=== PATIENT | female | born 1955 | race Caucasian/White ===

== ENCOUNTER → 2017-01-30 | Outpatient (CLI) | payer OTHER ==
[~2017-01-30] MED LIST: LISI10TA3 PO; PRIS100T PO; TRIA37.5 PO
[2017-01-30 17:33] LABS: AUTOMATED NEUTROPHIL # 4.7 TH/MM3 (1.8-7.7); BASOPHIL # 0.1 TH/MM3 (0-0.2); BASOPHIL % 1.1 % (0.0-2.0); EOSINOPHIL # 0.2 TH/MM3 (0-0.4); EOSINOPHIL % 2.6 % (0.0-4.0); HEMATOCRIT 43.3 % (35.0-46.0); HEMO FLAGS DIFF FINAL; LYMPH % 42.4 % (9.0-44.0); LYMPHOCYTE # 4.1 TH/MM3 (1.0-4.8); MEAN CELL VOLUME 94.7 FL (80.0-100.0); MEAN CORPUSCULAR HEMOGLOBIN 31.9 PG (27.0-34.0); MEAN CORPUSCULAR HGB CONC 33.7 % (32.0-36.0); MONO % 5.3 % (0.0-8.0); NEUT % 48.6 % (16.0-70.0); PLATELET COUNT 306 TH/MM3 (150-450); RED BLOOD COUNT 4.57 MIL/MM3 (4.00-5.30); RED CELL DISTRIBUTION WIDTH 13.2 % (11.6-17.2); WHITE BLOOD COUNT 9.6 TH/MM3 (4.0-11.0)
[2017-01-30 18:04] LABS: FREE T4 0.87 NG/DL (0.76-1.46)
== END ==
LOC: PLAB 15:39
PROVIDERS: ATTEND Family Medicine
DX: R53.83 Other fatigue (principal)
CPT/HCPCS: 82306; 82607; 82746; 84439; 84443; 84480; 85025

== ENCOUNTER 2018-03-15 19:47 | Observation (INO) ==
--- NOTE | 2018-03-15 21:31 | ED ---
HPI General Chief Complaint: Chest Pain Stated Complaint: Chest Pain Time Seen by Provider: 03/15/18 21:05 Source: patient Mode of arrival: ambulatory Limitations: no limitations History of Present Illness HPI narrative: The patient is a 62-year-old female who presents to the emergency department for chest pain. The patient states that she developed chest pain on Monday, the chest pain is substernal, radiates to the back, and is associated with diaphoresis. The patient also complains of mild pain with inspiration, feels like she cannot catch her breath. The patient denies any nausea, vomiting, or new cough. The patient does have a history of hypertension and hyperlipidemia, denies any known history of coronary artery disease, tobacco use, diabetes, pulmonary embolism, or DVT. The patient has never had a cardiac catheterization or stress test performed. The patient does have pain at rest, is constant, is not alleviated with lying supine. It is worse with certain movements, however, still present during relaxation and with ambulation. She denies any significant exertional factors. The patient's primary physician is Dr. Tyrel Mcneal. complaint: Reports chest pain STEMI Alert: No Onset (ago): day(s) Duration: constant Onset: other Pain location: Reports substernal Severity: moderate Severity scale (1-10): 6 Quality: Reports aching Pain radiation: Reports other Relieving factors: nothing Exacerbating factors: movement Associated symptoms: Reports diaphoresis Treatments prior to arrival chest pain: Reports other Related Data On Oral Contraceptives: No Home Medications Medication Instructions Recorded Confirmed desvenlafaxine succinate [Pristiq] 100 mg PO DAILY 01/20/18 03/15/18 lisinopril 20 mg PO DAILY 01/20/18 03/15/18 triamterene-hydrochlorothiazid 1 cap PO DAILY 01/20/18 03/15/18 [Dyazide] Allergies Allergy/AdvReac Type Severity Reaction Status Date / Time acetaminophen Allergy Severe Itching Verified 03/15/18 19:56 hydrocodone Allergy Severe Itching Verified 03/15/18 19:56 hydromorphone Allergy Severe ITCHING Verified 03/15/18 19:56 iodine Allergy Severe HIVES Verified 03/15/18 19:56 morphine Allergy Severe ITCH Verified 03/15/18 19:56 potassium iodide Allergy Severe HIVES Verified 03/15/18 19:56 povidone-iodine Allergy Severe HIVES Verified 03/15/18 19:56 sodium iodide Allergy Severe HIVES Verified 03/15/18 19:56 sodium iodide Allergy Severe HIVES Verified 03/15/18 19:56 shrimp Allergy Hives Verified 03/15/18 19:56 Review of Systems ROS: all other systems reviewed are negative [facility] Social History Social History Substance History: No History of Abuse Second Hand Smoke Exposure: No Smoking Status: Never smoker How Often Do You Have a Drink Containing Alcohol: Never Recent Travel in [facility] within the Last 8 Weeks: No Recent Out of Country Travel within the Last 8 Weeks: No Exam Narrative Exam Narrative: GENERAL: Awake, alert, pleasant 62-year-old female who appears her stated age and is in no acute respiratory distress. SKIN: Focused skin assessment warm/dry. No stigmata of shingles HEAD: Atraumatic. Normocephalic. EYES: Pupils equal and round. No scleral icterus. No injection or drainage. ENT: No nasal bleeding or discharge. Mucous membranes pink and moist. NECK: Trachea midline. No JVD. CARDIOVASCULAR: Regular rate and rhythm. No murmur appreciated. Palpation the chest wall produces pain, however, does not reproduce the pain. RESPIRATORY: No accessory muscle use. Clear to auscultation. Breath sounds equal bilaterally. GASTROINTESTINAL: Abdomen soft, non-tender, nondistended. No epigastric tenderness. Negative Boogie's and McBurney's. Back: No CVA tenderness. Mild tenderness of the mid right scapula. MUSCULOSKELETAL: No obvious deformities. No clubbing. No cyanosis. No edema. NEUROLOGICAL: Awake and alert. No obvious cranial nerve deficits. Motor grossly within normal limits. Normal speech. PSYCHIATRIC: Appropriate mood and affect; insight and judgment normal. Course Initial Documented Vital Signs Temperature 97.9 F 03/15/18 19:51 Pulse Rate 57 L 03/15/18 19:51 Respiratory Rate 18 03/15/18 19:51 Blood Pressure 193/88 H 03/15/18 19:51 Pulse Oximetry 98 03/15/18 19:51 Last Documented Vital Signs Temperature 97.9 F 03/15/18 19:51 Pulse Rate 62 03/15/18 21:49 Respiratory Rate 16 03/15/18 21:49 Blood Pressure 178/90 H 03/15/18 21:49 Pulse Oximetry 98 03/15/18 21:49 Medical Decision Making MDM Narrative Medical decision making narrative: IV was established, labs are drawn and sent, and the patient was placed on cardiac telemetry monitoring and continuous pulse oximetry monitoring. EKG was ordered and interpreted. Chest x-ray was obtained. The patient was administered aspirin and Nitropaste. CPK and troponin were sent to lab. There is no tachycardia or hypoxia, I doubt pulmonary embolism. The patient's chest x-ray reveals questionable pneumonitis versus pulmonary. However, BNP is unremarkable. I doubt significant pneumonitis, patient has had no cough or fever. No recent upper respiratory infections. Troponin and CPK were normal. Potassium is low at 3.3, however, was not replaced immediately secondary to multiple allergies to potassium iodide. Patient does have risk factors with age, hyperlipidemia, and hypertension with no previous CAD workup. After discussion with the patient was agreed she would be a 23-hour observation to the chest pain center for serial cardiac enzymes and possible stress test in the morning. The patient is comfortable with this plan of care and disposition. [facility] I discussed the patient with Dr. Kee who agrees with 23-hour observation to the chest pain center. The patient was administered Vasotec 2.5 mg intravenously for elevated blood pressure, would not tolerate labetalol with heart rate of 60. Medical Screen Exam Complete: Yes Emergency Medical Condition: Yes Differential Diagnosis Differential Diagnosis: Differential diagnosis includes ACS, STEMI, pericarditis , myocarditis, aortic dissection, PE, pneumonia, GERD, esophageal spasm, pancreatitis, biliary colic. Lab Data Result diagrams: 03/15/18 21:40 03/15/18 21:40 Lab Results 03/15/18 03/15/18 03/15/18 Range/Units 21:40 21:40 21:40 CBC w Diff Auto diff final WBC 9.4 (4.0-11.0) th/mm3 RBC 4.67 (4.00-5.30) mil/mm3 Hgb 15.0 (11.6-15.3) gm/dL Hct 44.3 (35.0-46.0) % MCV 94.7 (80.0-100.0) fL MCH 32.1 (27.0-34.0) pg MCHC 33.8 (32.0-36.0) % RDW 11.8 (11.6-17.2) % Plt Count 334 (150-450) th/mm3 MPV 8.3 (7.0-11.0) fL Neut % (Auto) 48.7 (16.0-70.0) % Lymph % (Auto) 39.8 (9.0-44.0) % [place] % (Auto) 5.8 (0.0-8.0) % Eos % (Auto) 5.1 H (0.0-4.0) % Baso % (Auto) 0.6 (0.0-2.0) % Neut # (Auto) 4.6 (1.8-7.7) th/mm3 Lymph # (Auto) 3.7 (1.0-4.8) th/mm3 [place] # (Auto) 0.5 (0.0-0.9) th/mm3 Eos # (Auto) 0.5 H (0.0-0.4) th/mm3 Baso # (Auto) 0.1 (0.0-0.2) th/mm3 WBC Differential . Differential Comment . PT (9.8-11.6) sec INR Ratio APTT (23.4-31.7) sec Sodium 138 (136-145) meq/L Potassium 3.3 L (3.5-5.1) meq/L Chloride 101 (98-107) meq/L Carbon Dioxide 33.3 H (21.0-32.0) meq/L Anion Gap 4 L (5-15) meq/L BUN 11 (7-18) mg/dL Creatinine 0.85 (0.50-1.00) mg/dL Estimated GFR 68 L (>89) mL/min Random Glucose 89 (74-106) mg/dL Calcium 8.7 (8.5-10.1) mg/dL Magnesium 2.0 (1.5-2.5) mg/dL Total Bilirubin 0.3 (0.2-1.0) mg/dL AST 19 (15-37) U/L ALT 26 (10-53) U/L Alkaline Phosphatase 65 (45-117) U/L Total Creatine Kinase 89 (26-192) U/L Troponin I Less than 0.02 L (0.02-0.05) ng/mL B-Natriuretic Peptide 17 (0-100) pg/mL Total Protein 7.4 (6.4-8.2) g/dL Albumin 3.9 (3.4-5.0) g/dL Lipase 129 (73-393) U/L 03/15/18 Range/Units 22:00 CBC w Diff WBC (4.0-11.0) th/mm3 RBC (4.00-5.30) mil/mm3 Hgb (11.6-15.3) gm/dL Hct (35.0-46.0) % MCV (80.0-100.0) fL MCH (27.0-34.0) pg MCHC (32.0-36.0) % RDW (11.6-17.2) % Plt Count (150-450) th/mm3 MPV (7.0-11.0) fL Neut % (Auto) (16.0-70.0) % Lymph % (Auto) (9.0-44.0) % [place] % (Auto) (0.0-8.0) % Eos % (Auto) (0.0-4.0) % Baso % (Auto) (0.0-2.0) % Neut # (Auto) (1.8-7.7) th/mm3 Lymph # (Auto) (1.0-4.8) th/mm3 [place] # (Auto) (0.0-0.9) th/mm3 Eos # (Auto) (0.0-0.4) th/mm3 Baso # (Auto) (0.0-0.2) th/mm3 WBC Differential Differential Comment PT 10.0 (9.8-11.6) sec INR 1.0 Ratio APTT 26.8 (23.4-31.7) sec Sodium (136-145) meq/L Potassium (3.5-5.1) meq/L Chloride (98-107) meq/L Carbon Dioxide (21.0-32.0) meq/L Anion Gap (5-15) meq/L BUN (7-18) mg/dL Creatinine (0.50-1.00) mg/dL Estimated GFR (>89) mL/min Random Glucose (74-106) mg/dL Calcium (8.5-10.1) mg/dL Magnesium (1.5-2.5) mg/dL Total Bilirubin (0.2-1.0) mg/dL AST (15-37) U/L ALT (10-53) U/L Alkaline Phosphatase (45-117) U/L Total Creatine Kinase (26-192) U/L Troponin I (0.02-0.05) ng/mL B-Natriuretic Peptide (0-100) pg/mL Total Protein (6.4-8.2) g/dL Albumin (3.4-5.0) g/dL Lipase (73-393) U/L Imaging Data Radiologist's impression: Chest X-Ray 03/15/18 21:19 CONCLUSION: 1. Mild diffuse increased interstitial markings are noted bilaterally consistent with mild pulmonary vascular congestion or viral pneumonitis. Clinical correlation is recommended. 2. Mild degenerative changes throughout the thoracic spine. ECG Data EKG Prior to Arrival: No Attestation: I personally reviewed and interpreted this ECG as follows: Interpretation: EKG reveals sinus bradycardia with a heart rate of 57. Q waves noted in lead III. Inverted T wave in lead aVL. Discharge Plan Discharge Disposition Patient Disposition: 30 Still Patient Discharge Condition Condition: Stable Discharge Details Diagnosis: Chest pain Physicians Team ED Provider: Jeffy Berumen Primary Care Provider: UNKNOWN, Rxs /Orders / Referrals /Forms Prescriptions: No Action lisinopril 20 mg Tablet 20 mg PO DAILY RF: 0 triamterene-hydrochlorothiazid [Dyazide] 37.5-25 mg Capsule 1 cap PO DAILY RF: 0 desvenlafaxine succinate [Pristiq] 100 mg Tablet Extended Release 24 Hr 100 mg PO DAILY RF: 0 Discharge Instructions Print Language: Welsh Patient Printed Instructions: Chest Pain (ED) Status ED Status: Admitted Observation Patient
--- NOTE | 2018-03-15 21:32 | XR ---
EXAM DATE: 03/15/2018 9:30 PM EST AGE/SEX: 62 years / Female INDICATIONS: Chest pain. CLINICAL DATA: This is the patient's initial encounter. Patient reports that signs and symptoms have been present for 1 day and indicates a pain score of 1/10. MEDICAL/SURGICAL HISTORY: . Hypertension. Gastroesophageal reflux disease. None. COMPARISON: No prior exams available for comparison. FINDINGS: Mild diffuse increased interstitial markings are noted bilaterally consistent with mild pulmonary vas cular congestion or viral pneumonitis. Clinical correlation is recommended. The heart is normal. Mild degenerative changes are noted throughout the thoracic spine. CONCLUSION: 1. Mild diffuse increased interstitial markings are noted bilaterally consistent with mild pulmonary vascular congestion or viral pneumonitis. Clinical correlation is recommended. 2. Mild degenerative changes throughout the thoracic spine. Electronically signed by: Edgardo Chan MD 03/15/2018 9:31 PM EST
[2018-03-15 21:46] LABS: Baso # (Auto) 0.1 th/mm3 (0.0-0.2); Baso % (Auto) 0.6 % (0.0-2.0); Eos # (Auto) 0.5 th/mm3 (0.0-0.4); Eos % (Auto) 5.1 % (0.0-4.0); Hematocrit 44.3 % (35.0-46.0); Lymph # (Auto) 3.7 th/mm3 (1.0-4.8); Lymph % (Auto) 39.8 % (9.0-44.0); Mean Corpuscular HGB Conc 33.8 % (32.0-36.0); Mean Corpuscular Hemoglobin 32.1 pg (27.0-34.0); Mean Corpuscular Volume 94.7 fL (80.0-100.0); Mean Platelet Volume 8.3 fL (7.0-11.0); Mono # (Auto) 0.5 th/mm3 (0.0-0.9); Mono % (Auto) 5.8 % (0.0-8.0); Neut # (Auto) 4.6 th/mm3 (1.8-7.7); Neut % (Auto) 48.7 % (16.0-70.0); Platelet Count 334 th/mm3 (150-450); Red Blood Count 4.67 mil/mm3 (4.00-5.30); Red Cell Distribution Width 11.8 % (11.6-17.2); White Blood Count 9.4 th/mm3 (4.0-11.0)
[2018-03-15 21:51] LABS: Chloride 101 meq/L (98-107); Potassium 3.3 meq/L (3.5-5.1); Sodium 138 meq/L (136-145)
[2018-03-15 21:55] LABS: Albumin 3.9 g/dL (3.4-5.0); Anion Gap 4 meq/L (5-15); Calcium 8.7 mg/dL (8.5-10.1); Carbon Dioxide 33.3 meq/L (21.0-32.0); Glucose,Random 89 mg/dL (74-106); Lipase 129 U/L (73-393)
[2018-03-15 21:56] LABS: Blood Urea Nitrogen 11 mg/dL (7-18)
[2018-03-15 21:58] LABS: Alanine Aminotransferase 26 U/L (10-53); Aspartate Aminotransferase 19 U/L (15-37); Glomerular Filtration Rate 68 mL/min (>89)
[2018-03-15 22:00] LABS: Total Protein 7.4 g/dL (6.4-8.2)
[2018-03-15 22:01] LABS: Alkaline Phosphatase 65 U/L (45-117)
[2018-03-15 22:04] LABS: Creatine Kinase 89 U/L (26-192)
[2018-03-15 22:24] LABS: Activated Partial Thrombo Time 26.8 sec (23.4-31.7)
[2018-03-16 01:48] LABS: Creatine Kinase 64 U/L (26-192)
[2018-03-16 04:29] VITALS: RESP 18
[2018-03-16 04:46] LABS: Chloride 104 meq/L (98-107); Potassium 3.5 meq/L (3.5-5.1); Sodium 140 meq/L (136-145)
[2018-03-16 04:49] LABS: Calcium 8.2 mg/dL (8.5-10.1)
[2018-03-16 06:28] LABS: Albumin 3.3 g/dL (3.4-5.0); Anion Gap 6 meq/L (5-15); Blood Urea Nitrogen 12 mg/dL (7-18); Carbon Dioxide 29.8 meq/L (21.0-32.0); Creatine Kinase 60 U/L (26-192); Glomerular Filtration Rate 82 mL/min (>89); Glucose,Random 123 mg/dL (74-106); Magnesium 2.1 mg/dL (1.5-2.5); Phosphorus 3.8 mg/dL (2.5-4.9)
--- NOTE | 2018-03-16 08:51 | P.HP ---
History of Present Illness Primary Care Physician: UNKNOWN Chief Complaint: Chest pain History of Present Illness: 62-year-old female with known history of hypertension who presented to the hospital for chest discomfort. Patient states that her chest pain started on Monday morning when she woke up where it was a pressure type pain in the middle part of her chest without any radiation, nausea, vomiting, diaphoresis, shortness of breath, dyspnea, lightheadedness, dizziness. She states that it was a 1/10 on pain scale. She indicates that the pain remained constant throughout the whole day and then when she woke up on Monday morning the pain progressively got worse up to a 3/10 on a pain scale and is started developing pleuritic type chest pain where it was more painful when she took a deep breath, the pain started radiating around her right chest into her back. The pain continued to be constant throughout the day and then when she woke up yesterday morning the pain was worse and progressively got to the point of a 7/ 10 on pain scale which was significantly pleuritic in nature. Because the pain did not improve and was not resolved with the use of ibuprofen, Abiel she came to emergency department for evaluation. Patient had workup done emergency department and was relatively unremarkable. Chest x-ray did indicate some possible interstitial edema versus viral pneumonitis. Patient was given nitroglycerin emergency department without any benefit or relief of her pain. Patient was given a tramadol with resolution of approximately 95% of her discomfort. Because of the patient's underlying risk factors for ischemia. It was recommended that the patient be observed in the chest pain center for further evaluation and management. - Diagnosis (1) Chest pain Review of Systems All other systems reviewed negative except as stated in HPI Cardiovascular: Reports chest pain Respiratory: Reports pain on inspiration PMFSH - History History Provided By: Patient - Medical History Medical History: Medical History (Last Reviewed 03/15/18 @ 21:47 by Judy Beaulieu RN) Aneurysm Puckett's palsy GERD (gastroesophageal reflux disease) History of IBS Hypertension - Surgical History Surgical History: Surgical History (Last Reviewed 03/15/18 @ 21:47 by Judy Beaulieu RN) H/O dilation and curettage History of hand surgery Hx of section Hx of hemorrhoidectomy - Family History Family History: Family History (Last Updated 03/16/18 @ 08:48 by TALIA Nieves) Father Family history of hypertension - Tobacco History Second Hand Smoke Exposure: No Tobacco Use In Past 30 Days: No Smoking Status: Former smoker Number of Pack Years (if former smoker): 15 (Patient quit smoking 32 years ago) - Alcohol History How Often Do You Have a Drink Containing Alcohol: Monthly or less - Substance Use History Substance History: No History of Abuse - Travel History Recent Travel in the [place] Within the Last 8 Weeks: No Recent Travel Out of the Country Within the Last 8 Weeks: No - Immunization History Tetanus Immunization: >5 Years Medications and Allergies Active Medications: Active Medications Enalaprilat (Vasotec Inj) 1.25 mg IV.PUSH Q6H PRN PRN Reason: SBP>160, DBP>90 Lisinopril (Prinivil) 20 mg PO DAILY [place] Nitroglycerin (Nitrostat Sl) 0.4 mg SL Q5M PRN PRN Reason: CHEST PAIN Last Admin: 03/16/18 00:34 Dose: 0.4 mg Sodium Chloride (Ns Flush) 2 ml IV.FLUSH BID [place] Sodium Chloride (Ns Flush) 2 ml IV.FLUSH PRN PRN PRN Reason: FLUSH AFTER USING IV ACCESS Triamterene/HCTZ (Dyazide 37.5/25 Mg) 1 cap PO DAILY [place] Allergies Allergy/AdvReac Type Severity Reaction Status Date / Time acetaminophen Allergy Severe Itching Verified 03/15/18 19:56 hydrocodone Allergy Severe Itching Verified 03/15/18 19:56 hydromorphone Allergy Severe ITCHING Verified 03/15/18 19:56 iodine Allergy Severe HIVES Verified 03/15/18 19:56 morphine Allergy Severe ITCH Verified 03/15/18 19:56 potassium iodide Allergy Severe HIVES Verified 03/15/18 19:56 povidone-iodine Allergy Severe HIVES Verified 03/15/18 19:56 sodium iodide Allergy Severe HIVES Verified 03/15/18 19:56 sodium iodide Allergy Severe HIVES Verified 03/15/18 19:56 shrimp Allergy Hives Verified 03/15/18 19:56 Home Medications Medication Instructions Recorded Confirmed Type desvenlafaxine succinate [Pristiq] 100 mg PO DAILY 01/20/18 03/15/18 History lisinopril 20 mg PO DAILY 01/20/18 03/15/18 History triamterene-hydrochlorothiazid 1 cap PO DAILY 01/20/18 03/15/18 History [Dyazide] Exam Vital signs: Vital Signs 03/15/18 19:51 03/15/18 20:45 03/15/18 21:46 Temperature 97.9 F Pulse Rate 57 L 75 Respiratory Rate 18 18 Blood Pressure 193/88 H 176/90 H Pulse Oximetry 98 98 03/15/18 21:49 03/15/18 22:56 03/15/18 23:15 Temperature Pulse Rate 62 80 Respiratory Rate 16 16 Blood Pressure 178/90 H 140/82 Pulse Oximetry 98 98 03/16/18 00:00 03/16/18 01:58 03/16/18 04:00 Temperature 96 F L 98.6 F Pulse Rate 54 L 64 Respiratory Rate 20 20 Blood Pressure 117/79 115/69 Pulse Oximetry 96 94 L 93 L 03/16/18 04:29 03/16/18 08:38 Temperature Pulse Rate Respiratory Rate 18 Blood Pressure Pulse Oximetry 96 Intake & Output 03/15/18 03/16/18 03/16/18 18:59 06:59 18:59 Intake Total 0 / 0 Output Total 30 / 30 Balance -30 / -30 Weight 77 kg Intake: Oral 0 / 0 Output: Urine Other: # Voids 1 # Bowel Movements 0 Weight On Admission 77 kg Narrative: GENERAL: Well-developed, well-nourished, in no acute distress. alert and orientated HEENT: Head is normocephalic without any lesions or masses noted. Facial features are symmetric. Eyes: Pupils equal round reactive to light. Extraocular muscles are intact. Conjunctivae were clear. Oropharyngeal: Pharynx without any erythema edema. Tongue is midline without deviation. Buccal mucosa is moist without any masses or lesions NECK: Supple without any masses. Trachea midline no deviation. No JVD, no bruits are appreciated CARDIAC: Regular rhythm, regular rate. S1/S2 are heard. No murmurs gallops or rubs. LUNGS: Clear to auscultation bilaterally. No wheeze, rhonchi or rales. No use of accessory muscles on inspiration or expiration. ABDOMEN: Soft, nontender. Nondistended. Bowel sounds heard in all 4 quadrants. No organomegaly or masses. Negative rebound, negative guarding EXTREMITIES: No edema, pulses are equal bilaterally. No cyanosis or clubbing NEUROLOGY: Mood and affect appear appropriate. Cranial nerves II through XII grossly intact. Muscle strength 5/5 in upper and lower extremities bilaterally. Deep tendon reflexes are 2+ in upper and lower extremities bilaterally. Results - Labs CBC & Chem 7: 03/15/18 21:40 03/16/18 04:00 Labs: Laboratory Results - last 24 hr 03/15/18 03/15/18 03/15/18 21:40 21:40 21:40 CBC w Diff Auto diff final WBC 9.4 RBC 4.67 Hgb 15.0 Hct 44.3 MCV 94.7 MCH 32.1 MCHC 33.8 RDW 11.8 Plt Count 334 MPV 8.3 Neut % (Auto) 48.7 Lymph % (Auto) 39.8 [place] % (Auto) 5.8 Eos % (Auto) 5.1 H Baso % (Auto) 0.6 Neut # (Auto) 4.6 Lymph # (Auto) 3.7 [place] # (Auto) 0.5 Eos # (Auto) 0.5 H Baso # (Auto) 0.1 WBC Differential . Differential Comment . PT INR APTT Sodium 138 Potassium 3.3 L Chloride 101 Carbon Dioxide 33.3 H Anion Gap 4 L BUN 11 Creatinine 0.85 Estimated GFR 68 L Random Glucose 89 Calcium 8.7 Phosphorus Magnesium 2.0 Total Bilirubin 0.3 AST 19 ALT 26 Alkaline Phosphatase 65 Total Creatine Kinase 89 Troponin I Less than 0.02 L B-Natriuretic Peptide 17 Total Protein 7.4 Albumin 3.9 Lipase 129 03/15/18 03/16/18 03/16/18 22:00 01:00 04:00 CBC w Diff WBC RBC Hgb Hct MCV MCH MCHC RDW Plt Count MPV Neut % (Auto) Lymph % (Auto) [place] % (Auto) Eos % (Auto) Baso % (Auto) Neut # (Auto) Lymph # (Auto) [place] # (Auto) Eos # (Auto) Baso # (Auto) WBC Differential Differential Comment PT 10.0 INR 1.0 APTT 26.8 Sodium 140 Potassium 3.5 Chloride 104 Carbon Dioxide 29.8 Anion Gap 6 BUN 12 Creatinine 0.72 Estimated GFR 82 L Random Glucose 123 H Calcium 8.2 L Phosphorus 3.8 Magnesium 2.1 Total Bilirubin AST ALT Alkaline Phosphatase Total Creatine Kinase 64 60 Troponin I Less than 0.02 L Less than 0.02 L B-Natriuretic Peptide Total Protein Albumin 3.3 L D Lipase - Imaging Impressions Chest X-Ray 03/15/18 21:19 CONCLUSION: 1. Mild diffuse increased interstitial markings are noted bilaterally consistent with mild pulmonary vascular congestion or viral pneumonitis. Clinical correlation is recommended. 2. Mild degenerative changes throughout the thoracic spine. Caprini VTE Risk Assessment Caprini VTE Risk Assessment: No/Low Risk (score <= 1) Caprini Risk Assessment Model: Point Value = 1 Point Value = 2 Point Value = 3 Point Value = 5 Age 41-60 Minor surgery BMI > 25 kg/m2 Swollen legs Varicose veins or History of unexplained or recurrent spontaneous Oral contraceptives or hormone replacement Sepsis (< 1 month) Serious lung disease, including pneumonia (< 1 month) Abnormal pulmonary function Acute myocardial infarction Congestive heart failure (< 1 month) History of inflammatory bowel disease Medical patient at bed rest Age 61-74 Arthroscopic surgery Major open surgery (> 45 min) Laparoscopic surgery (> 45 min) Malignancy Confined to bed (> 72 hours) Immobilizing plaster cast Central venous access Age >= 75 History of VTE Family history of VTE Factor V Leiden Prothrombin [id number] Lupus anticoagulant Anticardiolipin antibodies Elevated serum homocysteine Heparin-induced thrombocytopenia Other congenital or acquired thrombophilia Stroke (< 1 month) Elective arthroplasty Hip, pelvis, or leg fracture Acute spinal cord injury (< 1 month) Prophylaxis Regimen: Total Risk Factor Score Risk Level Prophylaxis Regimen 0-1 Low Early ambulation 2 Moderate Order ONE of the following: *Sequential Compression Device (SCD) *Heparin 5000 units SQ BID 3-4 Higher Order ONE of the following medications: *Heparin 5000 units SQ TID *Enoxaparin/Lovenox 40 mg SQ daily (WT < 150 kg, CrCl > 30 mL/min) *Enoxaparin/Lovenox 30 mg SQ daily (WT < 150 kg, CrCl > 10-29 mL/min) *Enoxaparin/Lovenox 30 mg SQ BID (WT < 150 kg, CrCl > 30 mL/min) AND/OR *Sequential Compression Device (SCD) 5 or more Highest Order ONE of the following medications: *Heparin 5000 units SQ TID (Preferred with Epidurals) *Enoxaparin/Lovenox 40 mg SQ daily (WT < 150 kg, CrCl > 30 mL/min) *Enoxaparin/Lovenox 30 mg SQ daily (WT < 150 kg, CrCl > 10-29 mL/min) *Enoxaparin/Lovenox 30 mg SQ BID (WT < 150 kg, CrCl > 30 mL/min) AND *Sequential Compression Device (SCD) Assessment and Plan - Assessment (1) Chest pain Code(s): R07.9 - Chest pain, unspecified Status: Acute - Plan Chest pain, atypical -Patient does have increased risk factors include age, hypertension, history of tobacco use -Patient has been ruled out for acute coronary event with serial cardiac enzymes that were negative -Serial EKG reviewed by myself and shows sinus rhythm with nonspecific ST-T changes, no acute changes -Myocardial perfusion study was performed and indicated no signs of ischemia, low risk -Continue aspirin, nitroglycerin as needed -Continue monitor telemetry -Discussed with the patient that she was experiencing a prodrome of symptoms of fatigue, weakness, her pain is pleuritic in nature and chest x-ray does show possible viral pneumonitis. Would consider the patient having a viral pneumonitis/pleurisy. Notify patient that she could experience this discomfort for as short as a few days to a few weeks. She will need follow up appointment with her primary medical doctor for continued care and management -We will continue tramadol for pain control Hypertension -Continue home medications DVT prevention -Sequential compression devices Discharge Planning: Discharge home in stable condition Activity: Ad butch. Diet: Healthy heart diet Medication per medication reconciliation Follow-up with primary medical doctor in 1 week (1) Chest pain Qualifiers: Chest pain type: unspecified Qualified Code(s): R07.9 - Chest pain, unspecified
[2018-03-16] MEDS ORDERED: Lisinopril 20 MG Tablet PO SCH (09:00)
[2018-03-16 09:21] VITALS: BP 121/58
[2018-03-16] MEDS ORDERED: Regadenoson Inj 0.4 MG/5 ML Syringe IV.PUSH ONE (12:04)
[2018-03-16 12:08] VITALS: PULSE 59; TEMP 97.7; O2SAT 91
--- NOTE | 2018-03-16 13:16 | NM ---
EXAM DATE: 03/16/2018 1:12 PM EST AGE/SEX: 62 years / Female INDICATIONS:Angina. . Chest pain. CLINICAL DATA: This is the patient's initial encounter. Patient reports that signs and symptoms have been present for 1 day and indicates a pain score of 1/10. MEDICAL/SURGICAL HISTORY: Hypertension. [place] palsy. section. COMPARISON: [facility] [place], [facility], 05/14/2015. . DOSE: 8.2 mCi Tc 99m Myoview at rest 25.6 mCi [id number] at stress 0.4 mg Lexiscan STRESS SYMPTOMS: Short of breath. EJECTION FRACTION: 69 % TECHNIQUE: The patient underwent pharmacologic stress with infusion of prescribed dose. Continuous ECG tracing was monitored during stress. Gated SPECT imaging was performed after stress and conventi onal SPECT imaging was performed at rest. The examination was performed on a SPECT/CT scanner, both attenuation and non-corrected datasets were reviewed. FINDINGS: Distribution: The maximum perfused segment at stress is in the anterolateral wall. Perfusion Study: The pattern of perfusion at stress is within normal limits. Gated Study: There are intact wall motion and wall thickening without hypokinetic or dyskinetic segm ents. The ejection fraction is calculated at 69%. RISK CATEGORY: Low (<1% Annual Motality Rate) CONCLUSION: 1. No stress-induced ischemia. 2. Intact wall motion with EF of 69%. Electronically signed by: Theodore Amaro MD 03/16/2018 1:15 PM EST
--- NOTE | 2018-03-16 14:57 | TR ---
Date Performed: 03/16/2018 Time Performed: 12:18:56 DOCTOR: Teodora Webber DRUG LIST: CLINICAL HISTORY: REASON FOR TEST: REASON FOR ENDING: OBSERVATION: CONCLUSION: Lexiscan stress test was performed under standard four minute protocol. Radionuclid e was injected one minute prior to ending the test. No electrocardiographic abormalities were present to suggest ischemia. Nuclear imaging and interpretation are pending. COMMENTS: Lexiscan stress test was performed under standard four minute protocol. Radionuclide was injected one minute prior to ending the test. No electrocardiographic abormalities were present t o suggest ischemia. Nuclear imaging and interpretation are pending.
--- NOTE | 2018-03-16 15:56 | ECG ---
Date Performed: 03/15/2018 Time Performed: 19:51:57 PTAGE: 62 years EKG: SINUS BRADYCARDIA POSSIBLE LEFT ATRIAL ENLARGEMENT NONSPECIFIC T-WAVE ABNORMALITY Since the previous tracing, no significant change noted BORDERLINE ECG PREVIOUS TRACING : 03/15/2018 17.25 DOCTOR: Christine Dia Interpretating Date/Time 03/16/2018 15:55:07
--- NOTE | 2018-03-16 15:57 | ECG ---
Date Performed: 03/15/2018 Time Performed: 23:10:13 PTAGE: 62 years EKG: Sinus rhythm WITH SHORT VA INTERVAL NONSPECIFIC T-WAVE ABNORMALITY Since the previous tracing, no significant blake nge noted BORDERLINE ECG PREVIOUS TRACING : 03/15/2018 19.51 DOCTOR: Christine Dia Interpretating Date/Time 03/16/2018 15:55:20
--- NOTE | 2018-03-16 15:57 | ECG ---
Date Performed: 03/16/2018 Time Performed: 01:49:46 PTAGE: 62 years EKG: SINUS BRADYCARDIA NONSPECIFIC T-WAVE ABNORMALITY Since the previous tracing, no significant change noted BORDERLINE ECG PREVIOUS TRACING : 03/15/2018 23.10 DOCTOR: Christine Dia Interpretating Date/Time 03/16/2018 15:55:29
== END 2018-03-16 16:28 | disposition home or self-care (01) ==
LOC: PHED 19:47 → PHEDA 19:47 → PH3 23:59
PROVIDERS: ADMIT Hospitalist; ATTEND Hospitalist